=== PATIENT | female | born 1960 | race Caucasian/White ===

== ENCOUNTER → 2016-08-04 | Outpatient (CLI) | payer OTHER | LOC: BMCIMAGING 07:32 | PROVIDERS: ATTEND Family Medicine | DX: Z12.31 Encounter for screening mammogram for malignant neoplasm of breast (principal) | CPT/HCPCS: G0202 ==

== ENCOUNTER → 2016-08-13 | Outpatient (CLI) | payer OTHER | LOC: BMCIMAGING 10:17 | PROVIDERS: ATTEND Family Medicine | DX: Z03.89 Encounter for observation for other suspected diseases and conditions ruled out (principal) | CPT/HCPCS: G0206 ==

== ENCOUNTER → 2017-06-02 | Outpatient (CLI) | payer OTHER | LOC: BMCIMAGING 10:58 | PROVIDERS: ATTEND Podiatrist Foot & Ankle Surgery | DX: M79.671 Pain in right foot (principal) ==

== ENCOUNTER 2018-05-06 19:22 | Emergency (ER) | payer OTHER ==
[2018-05-06] MEDS ORDERED: TDAP ADULT 0.5 ML INJ (BOOSTRIX) IM ONE (19:53)
--- NOTE | 2018-05-06 19:55 | EDPHY ---
H & P Stated Complaint: L palm lac from knife, concerned for tendon/nerve injury Time Seen by Provider: 05/06/18 19:55 HPI/ROS: HPI: This is a 57-year-old female who presents with Chief Complaint: L palm lac from knife, concerned for tendon/nerve injury Location: Left palm Quality: Laceration Duration: Prior to arrival Signs and Symptoms: + bleeding, no radiation, no numbness, no weakness, no tingling, no incontinence, no decreased range of motion, no swelling, + pain, no fever Timing: Acute Severity: Moderate Context: Patient is right-hand dominant, presents with accidentally cutting the palm of her left hand with a knife while cutting an avocado prior to arrival. She reports that it started to bleed and she felt immediate, constant , nonradiating pain. She denies any decreased range of motion. She does have a history of left finger decreased sensation secondary to nerve injury from laceration several years ago. Patient is concerned she may have cut of tendon or nerve. She denies any decreased range of motion, numbness, tingling. Unsure of tetanus status. Modifying Factors: Direct pressure Comment: ROS: A comprehensive 10 system review of systems is otherwise negative aside from elements mentioned in the history of present illness. MEDICAL/SURGICAL/SOCIAL HISTORY: Medical history: Diet-controlled DM, asthma, hypothyroid, HTN Surgical history: Denies Social history: Never smoked. CONSTITUTIONAL: Polite and cooperative elderly white female, awake and alert, no obvious distress HEENT: Atraumatic and normocephalic, PERRL, EOMI. Nares patent; no rhinorrhea; no nasal mucosal edema. Tympanic membranes clear. Oropharynx clear, no exudate and moist pink mucosa. Airway patent. No lymphadenopathy. No meningismus. Cardiovascular: Normal S1/S2, regular rate, regular rhythm, without murmur rub or gallop. PULMONARY/CHEST: Symmetrical and nontender. Clear to auscultation bilaterally. Good air movement. No accessory muscle usage. ABDOMEN: Soft, nondistended, nontender, no rebound, no guarding, no peritoneal signs, no masses or organomegaly. No CVAT. EXTREMITIES: 2/2 pulses, strength 5/5, left palm of hand shows 1 in, superficial, linear laceration inferior to the middle finger. No tendon exposure appreciated. Good light touch sensation. DI P, PIP, MCP joint has good flexion and extension. no clubbing, no cyanosis or edema. NEUROLOGICAL: no focal neuro deficits. GCS 15. SKIN: Warm and dry, no erythema. no rash. Good capillary refill. Source: Patient Exam Limitations: No limitations - Personal History Current Tetanus/Diphtheria Vaccine: No Current Tetanus Diphtheria and Acellular Pertussis (TDAP): No Tetanus Vaccine Date: 2004 - Medical/Surgical History Hx Asthma: Yes Hx Chronic Respiratory Disease: No Hx Diabetes: Yes Hx Cardiac Disease: Yes Hx Renal Disease: No Other PMH: Diet-controlled DM, asthma, hypothyroid, HTN - Social History Smoking Status: Never smoked Constitutional: Initial Vital Signs Temperature (C) 36.6 C 05/06/18 19:25 Heart Rate 60 05/06/18 19:25 Respiratory Rate 18 05/06/18 19:25 Blood Pressure 122/76 H 05/06/18 19:25 O2 Sat (%) 99 05/06/18 19:25 O2 Delivery Mode Room Air Allergies/Adverse Reactions: hydrocodone bitartrate [From Vicodin] Allergy (Mild, Verified 05/06/18 19:25) Itching amoxicillin [Amoxicillin] Allergy (Verified 05/06/18 19:25) PRILOSEC Allergy (Intermediate, Uncoded 05/06/18 19:25) Hives TETRACYCLINE Allergy (Intermediate, Uncoded 05/06/18 19:25) STOMACH UPSET antibiotics Adverse Reaction (Uncoded 05/06/18 19:25) Home Medications: Medication Instructions Recorded CALCIUM CARBONATE/VITAMIN D3 1 each PO DAILY 01/12/13 [CALCIUM + D 600 MG TABLET] Fluticasone/Salmeterol [Advair 1 inh IH DAILY 01/12/13 250-50 Diskus] Herbals/Supplements -Info Only 1 each PO AD 01/12/13 Hydrochlorothiazide 25 mg PO DAILY 01/12/13 [Hydrochlorothiazide 25 MG (RX)] Levothyroxine [Synthroid 75 mcg 75 mcg PO DAILY06 01/12/13 (RX)] Multivitamins [Tab-A-Ángel] 1 each PO DAILY 01/12/13 amLODIPine BESYLATE [Norvasc 5 mg 5 mg PO HS 01/12/13 (RX)] Albuterol Inhaler Hfa 12/18/13 Medical Decision Making Procedures: Procedure: Laceration repair. Verbal consent was obtained from the patient. The 1 in, simple, linear laceration on the left palm was anesthetized in the usual fashion using 6 mL of 1% lidocaine with epinephrine The wound was irrigated, draped and explored to its base with a gloved finger. There were no deep structures involved. No tendon injury was identified. The wound was repaired with #1, 4 0 Prolene buried portal suture and #1 simple interrupted pattern. Good hemostasis was achieved and patient tolerated procedure well. Xeroform, Clean and sterile dressing applied. The procedure was performed by myself. ED Course/Re-evaluation: Tetanus booster given. Local anesthesia provided and irrigated copiously. Laceration closed with 2 nonabsorbable sutures. Xeroform and clean sterile dressing applied. Verbal and written wound care instructions provided. Patient has good range of motion and I doubt tendon injury but will refer to orthopedic hand for follow-up. No signs of neurovascular compromise/tenting of skin/compartment syndrome/ extremities and joints examined above and below area of concern and are neurovascularly intact. This patient was seen under the supervision of my secondary supervising physician. I evaluated care for this patient with attending. Differential Diagnosis: Differential diagnosis includes but is not limited to laceration, tendon injury , nerve injury, foreign body. - Data Points Medications Given: Discontinued Medications Diphtheria/Tetanus/Acell Pertussis (Boostrix) 0.5 ml IM .ONCE ONE Stop: 05/06/18 19:54 Last Admin: 05/06/18 20:15 Dose: 0.5 ml Departure - Departure Disposition: Home, Routine, Self-Care Clinical Impression: Laceration of left palm without complication Qualifiers: Encounter type: initial encounter Qualified Code(s): S61.412A - Laceration without foreign body of left hand, initial encounter Condition: Good Instructions: Laceration (ED), Care For Your Stitches (ED), Finger Laceration ( ED) Additional Instructions: Keep the dressing dry and in place for 48 hours. After 48 hours, you may remove the dressing; wash the site daily with mild soap and water; then pat dry. Take Tylenol 650 mg every 4 hours and/or Ibuprofen 600 mg every 8 hours with food as needed for pain. Wound Care Follow-Up: Removal of sutures in [10-14] days. Suture removal is complimentary in uncomplicated cases. Infection or abnormal findings would require reevaluation by the MD. In that case, you may be billed. Return to the ER immediately if you experience new or worsening pain, discoloration, numbness, tingling, or any other symptoms that concern you. Referrals: Neena Alamo MD [Primary Care Provider] - As per Instructions Aguila Mireles MD [Medical Doctor] - Follow Up Only If Needed
[2018-05-06 20:56] VITALS: BP 124/77
== END 2018-05-06 20:56 | disposition home or self-care (01) ==
PROC: 0HQGXZZ Repair Left Hand Skin, External Approach (ICD-10-PCS; principal; 2018-05-06)
DX: S61.419A Laceration without foreign body of unspecified hand, initial encounter (principal); I10 Essential (primary) hypertension; E11.9 Type 2 diabetes mellitus without complications; E03.9 Hypothyroidism, unspecified; W26.0XXA Contact with knife, initial encounter; Y93.G1 Activity, food preparation and clean up; Y92.000 Kitchen of unspecified non-institutional (private) residence as the place of occurrence of the external cause; Z23 Encounter for immunization